=== PATIENT | female | born 1945 | race Caucasian/White ===

== ENCOUNTER 2021-07-19 07:14 | Day surgery (SDC) | payer MEDICARE, BC ==
[~2021-07-19] VITALS: Ht 157.5 cm; Wt 68.2 kg
[2021-07-19] MEDS ORDERED: ZESTRIL 10MG10 MG PO (07:51)
[2021-07-19] MEDS ORDERED: prevagen PO (07:51)
[2021-07-19 08:07] VITALS: BP 138/66; PULSE 77; TEMP 97.7
[2021-07-19 08:35] VITALS: BP 131/63; PULSE 72; TEMP 97
[2021-07-19 08:45] VITALS: BP 140/73; PULSE 84
[2021-07-19 09:00] VITALS: BP 128/67; PULSE 74
--- NOTE | 2021-07-19 09:30 | NUR ---
0835 Pt returns from endo procedure via cart and RN assist to [facility] [facility]. Pt ambulates from cart to recliner with RN assist. Monitors on and alarms set. Call light within reach. Report received from ALLISON Lewis. Pt alert and oriented. Pt requests water and jello. Pt denies any pain or nausea. 0850 Pt taking food and drink well. No complications noted. 0915 Discharge instructions given to pt and . All questions answered to their satisfaction. Handed to them is discharge information. 0930 Pt transferred out of the hospital via wheelchair and this RN assist, to private vehicle driven by pt's .
== END 2021-07-19 09:30 | disposition home or self-care (01) ==
LOC: SDCO 07:14
DX: K22.2 Esophageal obstruction (principal); K31.7 Polyp of stomach and duodenum; K29.71 Gastritis, unspecified, with bleeding; K21.01 Gastro-esophageal reflux disease with esophagitis, with bleeding; K44.9 Diaphragmatic hernia without obstruction or gangrene; I10 Essential (primary) hypertension; T47.1X6A Underdosing of other antacids and anti-gastric-secretion drugs, initial encounter; K29.80 Duodenitis without bleeding; Z91.14 Patient's other noncompliance with medication regimen; Z79.899 Other long term (current) drug therapy
CPT/HCPCS: C1726; J2704; J3010; J7120